=== PATIENT | female | born 1950 | race Caucasian/White ===

== ENCOUNTER 2019-08-05 16:38 | Emergency (ER) | payer MEDICARE ==
[~2019-08-05] VITALS: Ht 154.9 cm; Wt 63.5 kg
--- NOTE | 2019-08-05 16:59 | NUR ---
ED Nurse Note: pt walked in c/o contusion on right orbital area/right temporal and headache, pt states she was walking down the stairs and slipped and fell, denies any weakness nor syncopal episode, denies loc, pt states she went to the urgent care but the doctor at the urgent care sent pt for further eval. notedc contusion and small scab on right eyebrow/orbital/temporal area with swelling, pt reports tenderness, no active bleeding at this time, vision intact, will cont monitor. cms intact BUE/BLE, pt ambulates w/ steady gait.
[2019-08-05 17:01] VITALS: BP 126/71
--- NOTE | 2019-08-05 17:03 | Emergency Room Report ---
History of Present Illness General Chief Complaint: Multiple Trauma/Fall Source: Patient Present Illness HPI Disclaimer: Please note that this report is being documented using DRAGON technology. This can lead to erroneous entry secondary to incorrect interpretation by the dictating instrument. HPI: 68-year-old female history of hypothyroidism, depression presents for evaluation of facial injuries after a fall. Patient states she slipped down the last few steps going down the stairs in her home falling and striking her right faith against the ground approximately 8 PM last night. No loss of consciousness. She had a small laceration over the right orbit but she applied pressure to it achieved hemostasis. Complained of a headache at that time but took some Excedrin. Headache persisted throughout the day and went to an urgent care who directed her to the emergency department. She denies any changes in her vision or pain with extraocular movements. Denies any loose teeth or pain in the jaw. Denies any neck or back pain. Denies numbness, tingling or weakness in the extremities. Denies injuries to the torso, extremities or spine. Does not take anticoagulants PMH: Depression, hypothyroidism PSH: Denies Allergies: Denies Social Hx: Occasional tobacco use, denies drug or alcohol use Allergies: Coded Allergies: No Known Allergies (Unverified , 08/05/19) Nursing Documentation-PMH Past Medical History: No Stated History Review of Systems All Other Systems: negative except mentioned in HPI Physical Exam Vital Signs Date Time Temp Pulse Resp B/P (MAP) Pulse Ox O2 Delivery O2 Flow Rate FiO2 08/05/19 16:49 98.2 86 17 126/71 (89) 99 Room Air General: Awake and alert, no acute distress HEENT: Normocephalic. There are no scalp or face hematomas, lacerations. There is tenderness around the right orbit without obvious deformity. Periorbital ecchymosis present. Mild edema. EOMI. PERRLA. No septal hematoma. No oral lacerations. Dentition is intact. No malocclusion Neck: Supple, trachea midline. Arrives without cervical collar Chest Wall: No tenderness, no deformity, no crepitus CV: RRR. S1 and S2 normal. No murmur appreciated Resp: Normal work of breathing. No cough, wheezing or crackles appreciated Abd: Soft, nontender, nondistended Skin: 0.5 cm laceration over the lateral aspect of the right orbit, superficial , hemostatic and scabbed over MSK: Normal tone and bulk. No obvious deformity. Moving all extremities. Ambulating without difficulty. Neuro: Awake and alert. Mentating appropriately. Sensation is intact to light touch over the dermatomes of the upper and lower extremities Spine: There is no tenderness, step-off or deformity in the cervical, thoracic or lumbosacral spine. Medical Decision Making Diagnostic Impression: Primary Impression: Facial contusion ER Course 68-year-old female presents for evaluation of head and facial injuries after a fall last night. The patient denies being hurt by anyone and is safe in her home. Will obtain CT scans of the head and facial bones to assess for fractures and intracranial injuries. There is no tenderness or limitation in range of movements in the cervical spine and no tenderness in the remainder of the spine. No other findings on exam and no other complaints from patient at this time. CT/MRI/US Diagnostic Results CT/MRI/US Diagnostic Results : Impression Final Report EXAM: CT Head Without Intravenous Contrast CLINICAL HISTORY: INJ TECHNIQUE: Axial computed tomography images of the head/brain without intravenous contrast. CTDI is 62.7 mGy and DLP is 1359.1 mGy-cm. One or more of the following dose reduction techniques were used: automated exposure control, adjustment of the mA and/or kV according to patient size, use of iterative reconstruction technique. COMPARISON: No relevant prior studies available. FINDINGS: Brain: No hemorrhage. No edema. Involutional changes. Ventricles: No ventriculomegaly. Bones/joints: No acute fracture. Soft tissues: Unremarkable. Sinuses: No acute sinusitis. Mastoid air cells: No mastoid effusion. IMPRESSION: No acute intracranial process. Radiologist: Joey Robert M.D. Electronically Signed: 08/05/19 17:21 Study ready at 17:18 and initial results transmitted at 17:21 Final Report EXAM: CT Maxillofacial Without Intravenous Contrast CLINICAL HISTORY: INJ TECHNIQUE: Axial computed tomography images of the face without intravenous contrast. CTDI is 24 mGy and DLP is 535.3 mGy-cm. One or more of the following dose reduction techniques were used: automated exposure control, adjustment of the mA and/or kV according to patient size, use of iterative reconstruction technique. COMPARISON: No relevant prior studies available. FINDINGS: Bones/joints: No acute fracture. Degenerative changes of the TMJs. Soft tissues: Right facial-periorbital soft tissue swelling. Orbits: Unremarkable. Sinuses: No acute sinusitis. Dental: Dental related disease. IMPRESSION: No acute fracture. Radiologist: Joey Robert M.D. Electronically Signed: 08/05/19 18:25 Study ready at 17:18 and initial results transmitted at 18:25 Reevaluation Time: 18:29 Last Vital Signs Date Time Temp Pulse Resp B/P (MAP) Pulse Ox O2 Delivery O2 Flow Rate FiO2 08/05/19 16:49 98.2 86 17 126/71 (89) 99 Room Air Reevaluation Impression No evidence of fracture or intracranial injury on CT scans. The patient is well -appearing and stable for outpatient follow-up. Will use Tylenol Motrin for symptomatic relief and follow-up with her PMD early next week. Discussed reasons to return to the emergency department. She understands and agrees with this treatment plan. Disposition: HOME, SELF-CARE Condition: Stable Warner Sanchez MD Aug 05, 2019 17:03
--- NOTE | 2019-08-05 17:03 | NUR ---
ED Nurse Note: pt provided w/ warm blanket for comfort. pt denies taking any anti-coagulants, but states she takes aspirin everyday.safety measures in place.
[2019-08-05] MEDS ORDERED: SIMVASTATIN40 MG ORAL (17:05)
[2019-08-05] MEDS ORDERED: PROTONIX40 MG ORAL (17:05)
[2019-08-05] MEDS ORDERED: LEVOTHYROXINE75 MCG ORAL (17:05)
[2019-08-05] MEDS ORDERED: BUPROPION XL150 MG ORAL (17:05)
[2019-08-05] MEDS ORDERED: FLUOXETINE HCL40 MG ORAL (17:05)
[2019-08-05] MEDS ORDERED: TRAZODONE HCL50 MG ORAL (17:05)
--- NOTE | 2019-08-05 17:22 | Diagnostic Imaging Report ---
EXAM: CT Head Without Intravenous Contrast CLINICAL HISTORY: INJ TECHNIQUE: Axial computed tomography images of the head/brain without intravenous contrast. CTDI is 62.7 mGy and DLP is 1359.1 mGy-cm. One or more of the following dose reduction techniques were used: automated exposure control, adjustment of the mA and/or kV according to patient size, use of iterative reconstruction technique. COMPARISON: No relevant prior studies available. FINDINGS: Brain: No hemorrhage. No edema. Involutional changes. Ventricles: No ventriculomegaly. Bones/joints: No acute fracture. Soft tissues: Unremarkable. Sinuses: No acute sinusitis. Mastoid air cells: No mastoid effusion. IMPRESSION: No acute intracranial process.
--- NOTE | 2019-08-05 18:26 | Diagnostic Imaging Report ---
EXAM: CT Maxillofacial Without Intravenous Contrast CLINICAL HISTORY: INJ TECHNIQUE: Axial computed tomography images of the face without intravenous contrast. CTDI is 24 mGy and DLP is 535.3 mGy-cm. One or more of the following dose reduction techniques were used: automated exposure control, adjustment of the mA and/or kV according to patient size, use of iterative reconstruction technique. COMPARISON: No relevant prior studies available. FINDINGS: Bones/joints: No acute fracture. Degenerative changes of the TMJs. Soft tissues: Right facial-periorbital soft tissue swelling. Orbits: Unremarkable. Sinuses: No acute sinusitis. Dental: Dental related disease. IMPRESSION: No acute fracture.
[2019-08-05 18:32] VITALS: BP 124/70
--- NOTE | 2019-08-05 18:32 | NUR ---
ED Nurse Note: pt cleared to be d/c per ERMD, pt discharge and aftercare instruction provided, pt advised to follow up with pcp or return to ed if changes in condition, vss, ambulatory w/ steady gait, pt verbalized understanding, education done via discussion and handout, left w/ all belongings.
== END 2019-08-05 18:32 | disposition home or self-care (01) ==
LOC: EMR 17:31
DX: S00.83XA Contusion of other part of head, initial encounter (principal); E03.9 Hypothyroidism, unspecified; F17.200 Nicotine dependence, unspecified, uncomplicated; W10.9XXA Fall (on) (from) unspecified stairs and steps, initial encounter; Y93.01 Activity, walking, marching and hiking; Y92.019 Unspecified place in single-family (private) house as the place of occurrence of the external cause
CPT/HCPCS: 70450; 70486; 99284